=== PATIENT | female | born 1970 | race Asian ===

== ENCOUNTER 2019-12-12 09:29 | Emergency (ER) | payer SELFPAY ==
[2019-12-12 09:46] VITALS: BP 134/95
[2019-12-12] MEDS ORDERED: Fluorescein Sodium TOPICAL* 1 MG TEST STRIP OPHTHALMIC ONE (10:06)
--- NOTE | 2019-12-12 10:07 | UC ---
Eye Complaint HPI - HPI Summary HPI Summary: 49yo female presenting with right eye redness and irritation that began this morning. Patient states she was at work last night when she got itialian dressing in her eye. States she immediately washed it out at the eye wash station at work. States it "felt okay after that" but woke up this morning feeling like "something is stuck in it." Notes blurry vision from tearing. Denies pain with eye movement. Denies photophobia. Denies contact lens use. - History of Current Complaint Chief Complaint: UCEar Stated Complaint: FORIEGN BODY IN EYE Hx Obtained From: Patient Pain Intensity: 4 Pain Scale Used: 0-10 Numeric - Allergies/Home Medications Allergies/Adverse Reactions: Allergies Allergy/AdvReac Type Severity Reaction Status Date / Time No Known Allergies Allergy Verified 12/12/19 09:48 Home Medications: Home Medications Ciprofloxacin 0.3% OPTH.CHERYL* [Cipro 0.3% Opth*] 2 drop RIGHT EYE TID 7 Days #1 btl 12/12/19 [Rx] PMH/Surg Hx/FS Hx/Imm Hx Previously Healthy: Yes - Surgical History Surgical History: None - Family History Known Family History: Positive: Non-Contributory - Social History Alcohol Use: None Substance Use Type: None Smoking Status (MU): Never Smoked Tobacco Review of Systems All Other Systems Reviewed And Are Negative: No Constitutional: Positive: Negative Eyes: Positive: Blurred Vision - right eye from tearing, Other - foreign body sensation R eye. Negative: Drainage, Eye Redness, Photophobia Respiratory: Positive: Negative Cardiovascular: Positive: Negative Musculoskeletal: Positive: Negative Neurological/Mental Status: Positive: Negative Physical Exam - Summary Physical Exam Summary: Vital Signs Reviewed: Yes A+Ox3, no distress Eyes: Conjunctiva Clear, EOM intact and full, mild edema of right lower eyelid, no erythema, fluorescein stain eith upper eyelid eversion revealed no abrasion, ulceration, or foreign body. no drainage or crusting. ENT: Hearing grossly normal neck: supple Respiratory: Positive: No respiratory distress, No accessory muscle use Cardiovascular: skin color reflect adequate perfusion Musculoskeletal Exam: GRIFFIN x 4 without difficulty Neurological: Positive: Alert, ambulatory without difficulty Psychological: Positive: age appropriate behavior Skin: Positive: no rash, no ecchymosis Vital Signs: Initial Vital Signs Temp 98 F 12/12/19 09:42 Pulse 87 12/12/19 09:42 Resp 16 12/12/19 09:42 BP 134/95 12/12/19 09:42 Pulse Ox 100 12/12/19 09:42 Eye Complaint Course/Dx - Course Course Of Treatment: Fluorescein stain did not reveal any abnormalities, including abrasion, ulceration, or foreign body. There is mild edema of the right lower lid. PERRLA , EOM intact and full. Eversion of the right upper eyelid did not reveal anything either. Discussed with patient possible small corneal abrasion or stye forming. I provided the patient with Cipro drops and to apply warm compresses 2-3 times daily. Instructed to follow up with Dr. Gimenez if symptoms persist. Patient voiced understanding and agreed with treatment plan. - Differential Dx/Diagnosis Differential Diagnosis/HQI/PQRI: Corneal Abrasion, Foreign Body, Other - stye Provider Diagnosis: Sensation of foreign body in eye, Edema of right lower eyelid Discharge ED - Sign-Out/Discharge Documenting (check all that apply): Patient Departure All imaging exams completed and their final reports reviewed: No Studies - Discharge Plan Condition: Stable Disposition: HOME Prescriptions: Ciprofloxacin 0.3% OPTH.CHERYL* [Cipro 0.3% Opth*] 2 drop RIGHT EYE TID 7 Days #1 btl Patient Education Materials: Stye (ED), Corneal Abrasion (ED) Forms: *Work Release Referrals: July Jensen MD [Primary Care Provider] - Ivan Gimenez MD [Medical Doctor] - If Needed Additional Instructions: As discussed, their was no foreign body found in the eye. It is possible that you have a corneal abrasion or that a stye is forming. Place 2 antibiotic drops in the right eye 3 times daily for 7 days. Apply warm compresses to the eye 2-3 times daily. Follow up with Dr. Gimenez listed below if symptoms have not improved within 3-5 days. - Billing Disposition and Condition Condition: STABLE Disposition: Home - Attestation Statements Provider Attestation: This patient was not seen by me. I was available for consult. Chart reviewed. [email or web address]
== END 2019-12-12 10:30 | disposition home or self-care (01) ==
LOC: UCEAST 09:29
DX: H57.89 Other specified disorders of eye and adnexa (principal); H02.842 Edema of right lower eyelid
CPT/HCPCS: 99212; A9270-GY; G0463